=== PATIENT | male | born 1970 | race Caucasian/White ===

== ENCOUNTER 2025-03-22 10:34 | Inpatient (IN) | payer OTHER ==
[2025-03-22 10:52] VITALS: BMI 38.9
[2025-03-22] MEDS ORDERED: BENZONATATE 200 MG CAPSULE PO PRN (10:55)
[2025-03-22] MEDS ORDERED: IBUPROFEN 400 MG TABLET (FP) PO PRN (10:55)
[2025-03-22] MEDS ORDERED: ACETAMINOPHEN 325 MG TABLET (FP) PO PRN (10:55)
[2025-03-22] MEDS ORDERED: DICYCLOMINE HCL 10 MG CAPSULE PO PRN (10:55)
[2025-03-22] MEDS ORDERED: MAGNESIUM HYDROX 2400MG/30ML ORAL SUSPENSION 30 ML CUP PO PRN (10:55)
[2025-03-22] MEDS ORDERED: POLYETHYLENE GLYCOL (HEALTHYLAX) 3350 17 GM PACKET PO PRN (10:55)
[2025-03-22] MEDS ORDERED: guaiFENesin 600 MG TABLET.ER (FP) PO PRN (10:55)
[2025-03-22] MEDS ORDERED: BISMUTH SUBSALICYLATE 262 MG/15 ML BTL PO PRN (10:55)
[2025-03-22] MEDS ORDERED: LOPERAMIDE HCL 2 MG CAPSULE PO PRN (10:55)
[2025-03-22] MEDS ORDERED: BENZOCAINE/MENTHOL (CHLORASEPTIC ) LOZENGE MM PRN (10:55)
[2025-03-22] MEDS ORDERED: NALOXONE (NARCAN) HCL 4 MG/0.1 ML SPRAY NS PRN (10:55)
[2025-03-22] MEDS: NICOTINE 14 MG/24 HOURS TOPICAL PATCH TD SCH (14:11)
[2025-03-22] MEDS: PRENATAL VITAMINS W/ FOLIC ACID TABLET (FP) PO SCH (14:11)
[2025-03-22] MEDS: MAG HYDROX/AL HYDROX/SIMETH 30 ML UNIT-DOSE CUP PO PRN (14:45)
[2025-03-22] MEDS: ONDANSETRON *ODT* 4 MG TABLET SL PRN (17:36)
[2025-03-22] MEDS ORDERED: GABAPENTIN 100 MG CAPSULE PO SCH (22:00)
[2025-03-22] MEDS: MELATONIN 5 MG TABLETS PO SCH (22:19)
[2025-03-22] MEDS: ATORVASTATIN CA 20 MG TABLET (FP) PO SCH (22:19)
[2025-03-22] MEDS: IBUPROFEN 600 MG TABLET (FP) PO PRN (22:20)
[2025-03-22] MEDS: GABAPENTIN 300 MG CAPSULE PO SCH (22:20)
[2025-03-22] MEDS: THIAMINE 100 MG TABLET PO SCH (22:20)
[2025-03-23] MEDS: ASPIRIN 81 MG CHEWABLE TABLETS PO SCH (09:25)
[2025-03-23] MEDS: PANTOPRAZOLE 20 MG TABLET PO SCH (09:25)
[2025-03-23] MEDS: metFORMIN HCL 500 MG TABLET (FP) PO SCH (09:25)
[2025-03-23] MEDS: ATORVASTATIN CA 20 MG TABLET (FP) PO SCH (09:25)
[2025-03-23] MEDS: MONTELUKAST NA 10 MG TABLET PO SCH (09:26)
[2025-03-23] MEDS: FUROSEMIDE 40 MG TABLET (FP) PO SCH (10:20)
[2025-03-23] MEDS: LOSARTAN POTASSIUM 50 MG TABLET PO SCH (10:55)
[2025-03-23 11:27] LABS: MCHC 31.8 g/dl (32.3-36.5); MEAN CELL VOLUME 90.0 fl (79.0-92.2); MEAN PLT VOLUME 11.1 fl (9.4-12.4); RDW 14.1 % (12.2-16.1)
[2025-03-23 12:34] LABS: CO2 30.0 mmol/L (21-32); CREATININE 0.8 mg/dL (0.55-1.3); GLUCOSE,RANDOM 101.0 mg/dL (74-106); SGPT/ALT 29.0 U/L (13-61)
[2025-03-23 12:36] LABS: TOT PROT 7.1 g/dl (6.4-8.2)
[2025-03-23 12:37] LABS: ALK PHOS 101.0 U/L (45-117); SGOT/AST 21.0 U/L (15-37)
[2025-03-23] MEDS: PNEUMOC 20-VAL CONJ-DIP CRM/PF 0.5 ML SYRINGE IM ONE (12:44)
[2025-03-23] MEDS: CHOLECALCIFEROL (VIT D3) 5000 UNITS (125 MCG) CAP PO SCH (15:08)
[2025-03-24 01:08] LABS: HIV INTERPRETATION NEGATIVE (NEGATIVE)
[2025-03-24] MEDS: METHOCARBAMOL 500 MG TABLET PO PRN (03:38)
[2025-03-24] MEDS: hydrOXYzine PAMOATE 25 MG CAPSULE (FP) PO PRN (13:37)
[2025-03-25 17:06] VITALS: RESP 16
[2025-03-26 12:56] VITALS: BP 118/58; PULSE 61; TEMP 97.5
== END 2025-03-26 14:22 | disposition other institution (70) | DRG 773 ==
LOC: YASAS 10:34 → Y3N 13:25
PROVIDERS: ADMIT Allergy & Immunology; ATTEND Family Medicine Addiction Medicine
PROC: HZ2ZZZZ Detoxification Services for Substance Abuse Treatment (ICD-10-PCS; principal; 2025-03-22)
DX: F10.230 Alcohol dependence with withdrawal, uncomplicated (principal); F13.230 Sedative, hypnotic or anxiolytic dependence with withdrawal, uncomplicated; F11.20 Opioid dependence, uncomplicated; F17.210 Nicotine dependence, cigarettes, uncomplicated; F20.9 Schizophrenia, unspecified; F41.9 Anxiety disorder, unspecified; I11.0 Hypertensive heart disease with heart failure; I50.9 Heart failure, unspecified; E78.5 Hyperlipidemia, unspecified; J45.909 Unspecified asthma, uncomplicated; K21.9 Gastro-esophageal reflux disease without esophagitis; E11.9 Type 2 diabetes mellitus without complications; Z79.84 Long term (current) use of oral hypoglycemic drugs; Z88.0 Allergy status to penicillin; Z88.8 Allergy status to other drugs, medicaments and biological substances
CPT/HCPCS: 36415; 80053; 80305; 80307; 82140; 82962; 85027; 86780; 86803; 87389; 87811; 90677; 93005; 93010; Q0162

== ENCOUNTER 2025-03-26 14:34 | Inpatient (IN) | payer OTHER ==
[2025-03-26] MEDS ORDERED: guaiFENesin 600 MG TABLET.ER (FP) PO PRN (14:45)
[2025-03-26] MEDS ORDERED: LOPERAMIDE HCL 2 MG CAPSULE PO PRN (14:45)
[2025-03-26] MEDS ORDERED: NICOTINE POLACRILEX 2 MG LOZENGE BC PRN (14:45)
[2025-03-26] MEDS ORDERED: ACETAMINOPHEN 325 MG TABLET (FP) PO PRN (14:45)
[2025-03-26] MEDS ORDERED: IBUPROFEN 400 MG TABLET (FP) PO PRN (14:45)
[2025-03-26] MEDS ORDERED: BENZONATATE 200 MG CAPSULE PO PRN (14:45)
[2025-03-26] MEDS ORDERED: NALOXONE HCL 0.4 MG/ML VIAL IVPUSH PRN (14:45)
[2025-03-26] MEDS ORDERED: POLYETHYLENE GLYCOL (HEALTHYLAX) 3350 17 GM PACKET PO PRN (14:45)
[2025-03-26] MEDS ORDERED: NICOTINE POLACRILEX 2 MG GUM BUC PRN (14:45)
[2025-03-26] MEDS ORDERED: NALOXONE (NARCAN) HCL 4 MG/0.1 ML SPRAY NS PRN (14:45)
[2025-03-26] MEDS: MELATONIN 5 MG TABLETS PO SCH (21:52)
[2025-03-26] MEDS: THIAMINE 100 MG TABLET PO SCH (21:53)
[2025-03-26] MEDS: ATORVASTATIN CA 20 MG TABLET (FP) PO SCH (21:53)
[2025-03-26] MEDS: GABAPENTIN 300 MG CAPSULE PO SCH (21:53)
[2025-03-26] MEDS: MONTELUKAST NA 10 MG TABLET PO SCH (21:53)
[2025-03-27] MEDS: METHOCARBAMOL 500 MG TABLET PO PRN (06:02)
[2025-03-27] MEDS: IBUPROFEN 600 MG TABLET (FP) PO PRN (06:02)
[2025-03-27] MEDS: metFORMIN HCL 500 MG TABLET (FP) PO SCH (06:03)
[2025-03-27] MEDS: MAG HYDROX/AL HYDROX/SIMETH 30 ML UNIT-DOSE CUP PO PRN (09:03)
[2025-03-27] MEDS: PRENATAL VITAMINS W/ FOLIC ACID TABLET (FP) PO SCH (10:18)
[2025-03-27] MEDS: ASPIRIN 81 MG CHEWABLE TABLETS PO SCH (10:18)
[2025-03-27] MEDS: CHOLECALCIFEROL (VIT D3) 5000 UNITS (125 MCG) CAP PO SCH (10:18)
[2025-03-27] MEDS: FUROSEMIDE 40 MG TABLET (FP) PO SCH (10:19)
[2025-03-27] MEDS: LOSARTAN POTASSIUM 50 MG TABLET PO SCH (10:19)
[2025-03-28] MEDS: hydrOXYzine PAMOATE 25 MG CAPSULE (FP) PO PRN (18:34)
[2025-03-28] MEDS: MELATONIN 5 MG TABLETS PO SCH (21:23)
[2025-03-29] MEDS: TAMSULOSIN HCL 0.4 MG CAP PO SCH (07:54)
[2025-03-31] MEDS: BENZOCAINE/MENTHOL (CHLORASEPTIC ) LOZENGE MM PRN (03:54)
[2025-04-02] MEDS: P-EPHED 60MG/TRIPROLIDI 2.5MG TABLET PO PRN (01:39)
[2025-04-09] MEDS: TAMSULOSIN HCL 0.4 MG CAP PO SCH (07:36)
[2025-04-10] MEDS ORDERED: FAMOTIDINE 20 MG TABLET PO SCH (10:00)
[2025-04-10] MEDS: FAMOTIDINE 20 MG TABLET PO SCH (11:03)
[2025-04-12] MEDS: TAMSULOSIN HCL 0.4 MG CAP PO SCH (06:11)
[2025-04-15] MEDS ORDERED: ONDANSETRON 4 MG/2 ML VIAL IM ONE (11:00)
[2025-04-15] MEDS: ONDANSETRON *ODT* 4 MG TABLET SL ONE (11:08)
[2025-04-16] MEDS: ONDANSETRON *ODT* 4 MG TABLET SL PRN (09:54)
[2025-04-16] MEDS: MAGNESIUM HYDROX 2400MG/30ML ORAL SUSPENSION 30 ML CUP PO PRN (12:48)
[2025-04-20] MEDS ORDERED: ALBUTEROL SO4 HFA INHALER IH PRN (15:07)
[2025-04-20] MEDS: BUDESONIDE/FORMETEROL FUMARATE 160/4.5 mcg INHALER IH SCH (21:19)
[2025-04-21 18:09] VITALS: RESP 18
[2025-04-23 05:34] VITALS: TEMP 96.9
[2025-04-23 09:12] VITALS: BP 140/78; PULSE 83
== END 2025-04-23 10:03 | disposition home or self-care (01) | DRG 772 ==
LOC: YASAS 14:34 → Y3W 14:36
PROVIDERS: ADMIT Psychiatry & Neurology Pain Medicine; ATTEND Psychiatry & Neurology Pain Medicine
PROC: HZ42ZZZ Group Counseling for Substance Abuse Treatment, Cognitive-Behavioral (ICD-10-PCS; principal; 2025-03-26)
DX: F11.20 Opioid dependence, uncomplicated (principal); E78.5 Hyperlipidemia, unspecified; K21.9 Gastro-esophageal reflux disease without esophagitis; E11.9 Type 2 diabetes mellitus without complications; I11.0 Hypertensive heart disease with heart failure; I50.9 Heart failure, unspecified; Z96.651 Presence of right artificial knee joint; F20.9 Schizophrenia, unspecified; F41.9 Anxiety disorder, unspecified
CPT/HCPCS: 82962; Q0162